=== PATIENT | male | born 1995 | race Caucasian/White ===

== ENCOUNTER 2021-05-28 10:36 | Outpatient (CLI) | payer OTHER, SELFPAY ==
[2021-05-28 19:07] LABS: SARS-CoV-2 Ag Negative (Negative)
== END 2021-05-28 10:37 | disposition home or self-care (01) ==
LOC: CHSLAB 10:41
PROVIDERS: PCP Internal Medicine; Visit Provider Internal Medicine
DX: J06.9 Acute upper respiratory infection, unspecified (principal); Z20.822 Contact with and (suspected) exposure to COVID-19
CPT/HCPCS: 87426; C9803

== ENCOUNTER 2024-08-05 09:04 | Emergency (ER) | payer OTHER, SELFPAY ==
--- NOTE | 2024-08-05 09:29 | ED.URI ---
HPI - URI/Sore Throat General Chief Complaint: Upper Respiratory Infection Stated Complaint: sorethroat,runny nose Time Seen by Provider: 08/05/24 09:27 Source: patient, RN notes reviewed and old records reviewed Mode of arrival: ambulatory Limitations: no limitations History of Present Illness HPI Narrative: 29-year-old male to [facility] with complaint of runny nose nasal congestion for past 2 weeks that become increasingly worse. Patient states that it is his ability to sleep. Patient has attempted to treat at home with macc-enr-aweexjy medications little relief. Patient resting in exam room in no acute distress, appears tired acutely ill. Respirations even and nonlabored. Patient able to speak in complete sentences without difficulty. Related Data Home Medications Medication Instructions Recorded Confirmed budesonide-formoterol HFA 160 2 puff inhalation Q12H 08/05/24 08/05/24 mcg-4.5 mcg/actuation aerosol inhaler (Symbicort) sumatriptan succinate 25 mg tablet 25 mg PO ONCE 08/05/24 08/05/24 Allergies Allergy/AdvReac Type Severity Reaction Status Date / Time No Known Allergies Allergy Verified 08/05/24 09:45 Review of Systems Review of Systems: All systems reviewed & are unremarkable except as noted in HPI and below Constitutional: Constitutional: Reports as per HPI and Reports difficulty sleeping Eyes: Eyes: Reports no additional eye complaints ENT: Reports as per HPI and Reports nasal discharge Cardiovascular: Cardiovascular: Reports no additional cardiovascular complaints, Denies chest pain and Denies dyspnea Respiratory: Respiratory: Reports no additional respiratory complaints, Reports cough and Denies dyspnea Musculoskeletal: Musculoskeletal: Reports no additional musculoskeletal complaints Neurologic: Reports system reviewed and no additional complaints, except as documented Psychiatric: Psychiatric: Reports no additional psychiatric complaints PMFSH Comments At the time of my signature, I reviewed and agree with the nursing past medical, surgical, social, and family history. There is no relevant family history pertinent to the patient complaint. Exam Const: General: cooperative, comfortable, no acute distress, alert, ill appearing acutely, tired appearing and well nourished Nutritional Appearance: well nourished Orientation/consciousness: patient oriented x3 Limitations: no limitations HENMT: Head: normal to inspection Ears: external ears normal and TM abnormal dull bilateral, erythematous bilateral and with fluid behind the TM bilateral Face/Nose/Sinus: Normal external nose present, Nasal discharge present, normal facial exam, No erythema and No edema Face and sinus: no erythema, no edema and sinus tenderness Mouth: Yes Normal oral and palatal mucosa present Throat: posterior oropharynx abnormal erythema and postnasal drainage Eyes: General: appearance normal, both eyes and all related structures Neck: Neck: normal visual inspection, full ROM and no meningeal signs Lymphatic: no lymphadenopathy noted and no lymphedema noted Chest: Chest palpation & inspection: normal inspection of the chest Resp: Effort & Inspection: normal respiratory effort and able to speak in complete sentences Auscultation: clear to auscultation bilaterally Cardio: Jugular venous distension: no JVD Rate: regular rate Rhythm: regular rhythm Back/Spine/Pelvis: Cervical Spine: cervical ROM normal Skin: General skin exam: normal color, no rashes or lesions noted and turgor normal Neuro: General: patient oriented x3, gait normal, moves all extremities and no meningeal signs Speech: normal speech Gait exam (Neuro): Normal gait present Extrem: General: normal to inspection, full ROM and capillary refill normal Psych: Appearance: grossly normal and well kempt Course Course Emergency Course: Some parts of this dictation were generated by voice recognition software and may contain typographical and/or grammatical inaccuracies. Level of Care: Express Care Visit Vital Signs Vital signs: Vital Signs Temperature 37.4 C 08/05/24 09:43 Pulse Rate 113 H 08/05/24 09:43 Respiratory Rate 16 08/05/24 09:43 Blood Pressure 137/89 08/05/24 09:43 Pulse Oximetry 99 08/05/24 09:43 Temperature 37.4 C 08/05/24 09:47 Pulse Rate 113 H 08/05/24 09:47 Respiratory Rate 16 08/05/24 09:47 Blood Pressure 137/89 08/05/24 09:47 Pulse Oximetry 99 08/05/24 09:47 reviewed MDM - URI/Sore Throat MDM Narrative Medical decision making narrative: 29-year-old male to [facility] Care with complaint of runny nose nasal congestion for past 2 weeks that become increasingly worse. Patient states that it is his ability to sleep. Patient has attempted to treat at home with kylw-jeg-blvpaaq medications little relief. Patient resting in exam room in no acute distress, appears tired acutely ill. Respirations even and nonlabored. Patient able to speak in complete sentences without difficulty. On exam, posterior oropharynx erythematous with postnasal drainage. Bilateral TMs are dull, erythematous with purulent fluid. Sinus tenderness. Bilateral nares with clear drainage. Patient is sitting comfortably in exam room nontoxic in appearance. Patient appropriate for outpatient treatment and follow-up. Discharge instructions reviewed with patient, as well as provided in writing per nursing staff. The instructions also include specific and strict return/GO TO THE ER as well as f/u information. All questions have been answered, and the patient deny any further questions with discharge and discharge plan. Some parts of this dictation were generated by voice recognition software and may contain typographical and/or grammatical inaccuracies. Differential Diagnosis Differential diagnosis: Likely upper respiratory infection, croup, otitis media, sinusitis, viral infection, bronchitis, influenza and pharyngitis Discharge Plan Discharge Clinical Impression: Bacterial sinusitis Patient Disposition: Home, Self-Care Condition: Stable Instructions: Sinusitis (ED) Additional Instructions: -Alternate Tylenol and Motrin per package directions for fever or pain. -Antihistamine medication such as Benadryl at night and Zyrtec/Claritin/Federica during the day can help improve symptoms. -Use Flonase twice a day for 5 days then daily to help reduce the inflammation and dry up your sinuses. -You can also use Sudafed or Mucinex. Be sure to drink plenty of water with these medications at least 8 ounces with every dose and it is important to drink 8 to 10 glasses of water per day. Water is a natural decongestant -Eat and drink things that are easy to swallow, like tea or soup, or popsicles. -Oral rinses such as: Salt water gargles and/or may use topical anesthetic (eg. Chloraseptic spray) or lozenges to relieve dryness or throat pain). -Frequent hand washing or hand dermatological surgeon is one of the best ways to prevent spread of infection. -Using a vaporizer or humidifier at night will also help thin secretions and help with coughing up phlegm. -Follow up with primary care provider in 2-3 days if condition is not improving; or seek ER visit if you have trouble breathing, cannot drink enough fluids, have muffled voice, difficulty opening your mouth, or severe swelling. Prescriptions: New amoxicillin 875 mg tablet 875 mg PO Q12H Qty: 20 0RF prednisone 20 mg tablet See Rx Instructions .ROUTE .COMPLEX Qty: 9 0RF Rx Instructions: Take 40mg x3 days, 20mg x3 days. Take in the morning. No Action sumatriptan succinate 25 mg Tablet 25 mg PO ONCE budesonide-formoterol [Symbicort] 160-4.5 mcg/actuation Hfa Aerosol Inhaler 2 puff INHALATION Q12H Follow-up/Referrals: Oswaldo Bills MD [Primary Care Provider] -
[2024-08-05 09:43] VITALS: BP 137/89; PULSE 113; RESP 16; TEMP 37.4; O2SAT 99
[2024-08-05 09:47] VITALS: BP 137/89; PULSE 113; RESP 16; TEMP 37.4; O2SAT 99
== END 2024-08-05 10:08 | disposition home or self-care (01) ==
PROVIDERS: Emergency Provider Nurse Practitioner Family; PCP Internal Medicine
DX: J32.9 Chronic sinusitis, unspecified (principal); J45.909 Unspecified asthma, uncomplicated
CPT/HCPCS: 99213; G0463

== ENCOUNTER 2025-06-14 16:22 | Emergency (ER) | payer OTHER, SELFPAY ==
[2025-06-14 16:35] VITALS: BP 131/86; PULSE 88; RESP 16; TEMP 36.9; O2SAT 100
--- NOTE | 2025-06-14 16:56 | ED_ITS ---
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 Endorses intermittent dizziness and nausea. No treatment habitat biologist. Endorses tetanus updated in the last 2 years. Related Data Home Medications ?Medication ?Instructions ?Recorded ?Confirmed ?Last Taken ?Type budesonide-formoterol HFA 160 2 puff inhalation Q12H 1 10/05/23 06/14/25 Unknown History mcg-4.5 mcg/actuation aerosol inhaler (Symbicort) sumatriptan succinate 25 mg tablet 25 mg PO ONCE 08/0508/05/24 Unknown History Allergies Allergy/AdvReac Type Severity Reaction Status Date / Time No Known Allergies Allergy Verified 06/14/25 17:18 Review of Systems Review of Systems: CONSTITUTIONAL: Denies body aches, fever, chills, or sweats. EYES: Denies visual changes, redness, or discharge. ENT: Denies rhinorrhea, congestion, epistaxis CARDIOVASCULAR: Denies chest pain, palpitations, or edema. RESPIRATORY: Denies cough or dyspnea. GASTROINTESTINAL: reports nausea, denies vomiting SKIN: reports facial lacerations MUSCULOSKELETAL: Denies back pain, joint pain, or myalgia. NEUROLOGIC: reports headache, dizziness denies numbness, tingling, or weakness. PMFSH Comments At time of signature, I have reviewed and agree with nursing past medical, surgical, social and family history unless otherwise noted. Please see nursing chart for further information. There is no relevant family history pertinent to the presenting complaint Exam Narrative: GENERAL: Well-appearing HEAD: Skin avulsion to bridge of nose irregular approx 1.5x1cm and between eyebrows approx 1cm, scant serosanguineous drainage. No bruising or swelling over nose or eyes. EYES: conjunctivae clear EOMI. PERRLA ENT: Mucous membranes moist. No epistaxis. Oropharynx without edema, erythema or lesions. NECK: Normal AROM. CHEST: Clear to auscultation. HEART: Regular rate and rhythm. SKIN: Warm, dry. NEURO: Alert and oriented x3. Course Course Emergency Course: Patient is aware of diagnosis, understands and agrees to treatment plan. Anti cipatory guidance given. Patient agrees to follow-up as directed and is aware of reasons to seek care at the emergency department. Portions of this record may have been created with voice recognition software Level of Care: Express Care Visit Vital Signs Vital signs: Vital Signs Temperature 98.5 F 06/14/25 16:35 Pulse Rate 88 06/14/25 16:35 Respiratory Rate 16 06/14/25 16:35 Blood Pressure 131/86 06/14/25 16:35 Pulse Oximetry 100 06/14/25 16:35 Temperature 98.5 F 06/14/25 16:35 Pulse Rate 88 06/14/25 16:35 Respiratory Rate 16 06/14/25 16:35 Blood Pressure 131/86 06/14/25 16:35 Pulse Oximetry 100 06/14/25 16:35 Reviewed MDM - Wound/Laceration MDM Narrative Medical decision making narrative: Discussed physical exam findings. Avulsion to nose. JOSE M and bandaid cut into hour glass shape applied over the wounds. Declines zofran. Says dizziness and nausea are resolved. Pt reports tetanus updated in the last 2 years. Advised supportive measures and signs/symptoms to go to the ER. Pt is appropriate for outpt treatment and f/u. Differential Diagnosis Differential diagnosis: Likely laceration, abrasion and avulsion of skin Discharge Plan Discharge Clinical Impression: Avulsion of skin Patient Disposition: Home Condition: Stable Instructions: Antibiotic Form, Laceration (ED) Additional Instructions: Keep the areas clean and dry - gently cleanse with warm water and mild soap and gently dab to dry. apply neosporin to the site then the bandaid dressing Keep it covered with a bandage until scab forms then leave open to the air Take antibiotic as directed Ice pack to the face 10 minute intervals several times a day Tylenol as needed for pain Watch for worsening symptoms including pain, redness, swelling, streaking, p us/drainage, fever. Go to the ER with any of these symptoms or concerns. Follow up with primary care provider in 3 days as needed. Patient Language: American Prescriptions: No Action sumatriptan succinate 25 mg Tablet 25 mg PO ONCE budesonide-formoterol [Symbicort] 160-4.5 mcg/actuation Hfa Aerosol Inhaler 2 puff INHALATION Q12H Follow-up/Referrals: Oswaldo Bills MD [Primary Care Provider, Internal Medicine] Stand Alone Forms: Work/School Release IP Time of Disposition: 17:13
== END 2025-06-14 17:22 | disposition home or self-care (01) ==
PROVIDERS: Emergency Provider Nurse Practitioner Family; PCP Internal Medicine
DX: S01.81XA Laceration without foreign body of other part of head, initial encounter (principal); Z79.899 Other long term (current) drug therapy; W01.0XXA Fall on same level from slipping, tripping and stumbling without subsequent striking against object, initial encounter
CPT/HCPCS: 99212; G0463

== ENCOUNTER 2025-06-18 10:46 | Outpatient (CLI) | payer OTHER, SELFPAY ==
--- NOTE | ~2025-06-18 | XR_ITS ---
EXAMINATION: NASAL BONES-3+VIEWS DATE: 06/18/2025 11:15 INDICATION: Injury to the nose TECHNIQUE: AP and left and right lateral views of the nasal bones were obtained. COMPARISON: None. FINDINGS: No fractures identified. Specifically the nasal bones and visualized choi of the orbits and paranasal sinuses appear intact. Nasal septum is midline. The mastoids appear hyperpneumatized. No air-fluid levels appreciated within the paranasal sinuses . IMPRESSION: 1. No nasal bone fracture identified. Reviewed, dictated and finalized at location A.
--- OUTSIDE RECORDS SUMMARY | 2025-06-18 11:26 | XMS_ITS | Clinical Summary ---
Author Organization [facility] Address [address] [place] [address] Care Team Providers Care Aadc Plans Staff Officer Name Role Phone Unavailable Primary Care Provider Unavailabl e Social History Tobacco Use Types Packs/Day Years Used Date Smoking Tobacco: Never Assessed Sex and Gender Information Value Date Recorded Sex Assigned at Not on file Legal Sex Male 5:02 PM CDT Gender Identity Not on file Sexual Orientation Not on file Plan of Treatment Health Maintenance Due Date Last Done Comments Annual Physical 1998 Hepatitis C 2013 DTaP, Tdap and Td Vaccines ( 1 - Tdap) 2014 Hepatitis B Vaccines (1 of 3 - 19+ 3-dose series) 2014 HPV Vaccines (1 - 3-dose SCD M series) 2022 COVID-19 Vaccine (1 - 2023-2 5 season) 2025 Meningococcal B Vaccine Aged Out No l onger eligible based on patient's age to complete this topic Meningococcal Vaccine Aged Out No sergio nathen eligible based on patient's age to complete this topic Pneumococcal Vaccine: Pediat rics (0 to 5 Years) and At-Risk Patients (6 to 49 Years) Aged Out No longer eligible b ased on patient's age to complete this topic RSV Immunizations Under 20 Months Aged Out No longer eligible based on patient's age to complete this topic
== END 2025-06-18 10:47 | disposition home or self-care (01) ==
LOC: CHSIMG 10:47
PROVIDERS: PCP Internal Medicine; Visit Provider Internal Medicine
DX: S09.92XA Unspecified injury of nose, initial encounter (principal)
CPT/HCPCS: 70160